=== PATIENT | male | born 1965 | race African-American/Black ===

== ENCOUNTER 2021-02-05 22:26 | Emergency (ER) | payer SELFPAY ==
[~2021-02-05] VITALS: Ht 170.2 cm; Wt 107.0 kg
[2021-02-05 22:35] VITALS: BP 158/76
== END 2021-02-05 22:54 | disposition home or self-care (01) ==
LOC: ER 22:26
DX: F16.10 Hallucinogen abuse, uncomplicated (principal)
CPT/HCPCS: 99283